=== PATIENT | female | born 1945 | race Caucasian/White ===

== ENCOUNTER 2016-11-05 14:00 | Emergency (ER) | payer MEDICARE, BC ==
[2016-11-05 14:37] VITALS: BP 146/68
[2016-11-05] MEDS ORDERED: Aspirin Low Dose CHEW TAB* 81 MG PO ONE (16:14)
--- NOTE | 2016-11-05 17:08 | UC ---
Magali Zuleta Erika, scribed for Radha Saavedra DO on 11/05/16 at 1615 . Shoulder Pain HPI - HPI Summary HPI Summary: Patient is a 71-year-old female presenting to [facility] with a CC of L shoulder pain which was present when she woke up yesterday morning. She describes pain as throbbing, sharp and constant, and rates it an 8/10 currently. She states pain radiates from the left jaw/neck to the left shoulder. Pain was aggravated by exertion, carrying groceries and driving, or other similar movements, as well as by palpation. She does note some decreased ROM d/t pain. Patient denies any other symptoms, including fever, chills, diaphoresis, headache, dizziness, lightheadedness, sore throat, ear ache, cough, SOB, chest pain, nausea, vomiting , abdominal pain, urinary symptoms, and rash. Hx CAD with one cardiac stent in 1995, which was placed after chest pain and a stress test. No recent stress test. Hx diabetes - reports that A1C was around 15, and is now 7-8 after starting trulicity, and her blood glucose is now around 130. She states she also takes novolog and levemir. Hx HTN. FHx colon and breast CA. Patient denies FHx CAD, HTN, DM. Patient is a former smoker, and denies current household exposure to tobacco. No known trauma. - History of Current Complaint Chief Complaint: UCUpperExtremity Stated Complaint: SHOULDER COMPLAINT Time Seen by Provider: 11/05/16 15:33 Hx Obtained From: Patient, Family/[employer] Officer Onset/Duration: Lasting Hours, Still Present Timing: Constant Severity Initially: Moderate Severity Currently: Severe Location Of Pain: Is Discrete @ - L shoulder to jaw Pain Intensity: 8 Pain Scale Used: 0-10 Numeric Character: Sharp, Throbbing Aggravating Factor(s): Movement, Nothing - exertion Alleviating Factor(s): Rest Associated Signs And Symptoms: Positive: Negative - Allergies/Home Medications Allergies/Adverse Reactions: Allergies Allergy/AdvReac Type Severity Reaction Status Date / Time BACTRIM Allergy Rash And Uncoded 11/05/16 14:37 Itching CLARITH Allergy Nausea And Uncoded 11/05/16 14:37 Vomiting Home Medications: Home Medications Dulaglutide (NF) [Trulicity (NF)] 0.5 ml SUBCUT SEE INSTRUCTIONS 11/05/16 [ History Confirmed 11/05/16] Ibuprofen [Advil] 800 mg PO Q8HR PRN 11/05/16 [History Confirmed 11/05/16] Insulin Detemir (NF) [Levemir (NF)] 80 units SUBCUT BID 11/05/16 [History Confirmed 11/05/16] Ropinirole Hydrochloride [Requip] 2 tab PO SEE INSTRUCTIONS 11/05/16 [History Confirmed 11/05/16] PMH/Surg Hx/FS Hx/Imm Hx Endocrine History Of: Reports: Diabetes, Dyslipidemia Cardiovascular History Of: Reports: Cardiac Disorders - Stents, Hypertension - ON MEDS - Surgical History Surgical History: Yes Surgery Procedure, Year, and Place: DEVIATED SEPTUM REPAIR 1991. LEFT OVARIAN CYST REMOVAL 1983. Cardiac stent - Family History Known Family History: Positive: Other - colon CA and breast CA Negative: Cardiac Disease, Hypertension, Diabetes - Social History Lives: With Family Alcohol Use: Rare Substance Use Type: None Smoking Status (MU): Former Smoker Type: Cigarettes Amount Used/How Often: 1.5 PACK/DAY Length of Time of Smoking/Using Tobacco: 15 years Have You Smoked in the Last Year: No When Did the Patient Quit Smoking/Using Tobacco: 1995 Review of Systems Constitutional: Negative Skin: Negative Eyes: Negative ENT: Negative Respiratory: Negative Cardiovascular: Negative Gastrointestinal: Negative Genitourinary: Negative Motor: Negative Neurovascular: Negative Musculoskeletal: Decreased ROM - L shoulder, Other: - L shoulder pain radiating from jaw through neck Neurological: Negative Psychological: Negative All Other Systems Reviewed And Are Negative: Yes Physical Exam Triage Information Reviewed: Yes Appearance: Well-Appearing, Well-Nourished, Pain Distress - Mild to moderate Vital Signs: Initial Vital Signs Temp 98.2 F 11/05/16 14:32 Pulse 75 11/05/16 14:32 Resp 16 11/05/16 14:32 BP 146/68 11/05/16 14:32 Pulse Ox 97 11/05/16 14:32 Vital Signs Reviewed: Yes Eyes: Positive: Conjunctiva Clear. Negative: Discharge ENT: Positive: Hearing grossly normal. Negative: Muffled/hoarse voice Neck: Positive: Supple, Nontender Respiratory: Positive: Lungs clear, Normal breath sounds, No respiratory distress, No accessory muscle use Cardiovascular: Positive: RRR, No Murmur Abdomen Description: Positive: Nontender, Soft. Negative: Distended, Guarding Bowel Sounds: Positive: Present Musculoskeletal Exam: Other - Tenderness at the left spine of scapula. Tenderness along the distal clavicle over acromion. Pain up the left side of the jaw and neck, but not worsened with palpation. ROM limited in flexion and abduction. Internal and external rotation okay. Passive ROM did not elicit a barrier but was discontinued due to pain. Mild paraspinal tenderness Neurological: Positive: Alert, Muscle Tone Normal Psychological Exam: Normal Psychological: Positive: Age Appropriate Behavior Skin Exam: Other - Warm, dry, normal color Diagnostics - EKG Cardiac Rate: NL - at 77 bpm Cardiac Rhythm: Sinus: Normal - No ST changes Shoulder Course/Dx - Differential Dx/Diagnosis Differential Diagnosis/HQI/PQRI: Arthritis, Bursitis, Sprain, Other - adhesive capsulitis, cervical strain, pinched nerve Provider Diagnoses: 1. Atypical chest pain r/o ACS. 2. Left shoulder pain and neck pain - Physician Notification/Consults Discussed Patient Care With: Dr. Dang ([facility] [place] [facility]) at 16:08 - accepts for transfer Discharge - Discharge Plan Condition: Stable Disposition: TRANS HIGHER LVL OF CARE FAC Referrals: Michael Campbell MD [Primary Care Provider] - The documentation as recorded by the Magali rendon Erika accurately reflects the service I personally performed and the decisions made by , Radha Saavedra DO.
== END 2016-11-05 16:44 | disposition short-term general hospital (02) ==
LOC: UCEAST 14:00
DX: R07.89 Other chest pain (principal); E11.9 Type 2 diabetes mellitus without complications; E78.5 Hyperlipidemia, unspecified; I10 Essential (primary) hypertension; M25.512 Pain in left shoulder; M54.2 Cervicalgia; Z87.891 Personal history of nicotine dependence; Z88.3 Allergy status to other anti-infective agents; Z79.4 Long term (current) use of insulin
CPT/HCPCS: 93005; 99214; A9270-GY; G0463

== ENCOUNTER 2016-11-05 17:02 | Emergency (ER) | payer MEDICARE, BC ==
[2016-11-05] MEDS ORDERED: traMADol TAB* 50 MG PO ONE (18:13)
--- NOTE | 2016-11-05 19:28 | RAD ---
Indication: 2 days LEFT shoulder pain. Tightness radiating to the LEFT side of the neck. No known injury. Comparison: None. Technique: Internal and external rotation AP and scapular Y views LEFT shoulder Report: Normal acromioclavicular and glenohumeral joint alignment. Negative for fracture. Mild osteophytosis at both the acromioclavicular and glenohumeral joints as well as mild inferior acromial bone spur and cystic change at the greater tuberosity of the humerus. Negative for stigmata of calcific tendinopathy or abnormal soft tissue contour. IMPRESSION: Mild osteoarthritis. Reactive change at the greater tuberosity of the humerus favors presence of chronic rotator cuff pathology.
[2016-11-05] MEDS ORDERED: oxyCODONE/Acetamin 5/325 MG* TAB PO ONE (19:50)
[2016-11-05] MEDS ORDERED: HYDROcodone/ACETAMIN 5-325 MG* 1 TAB PO SCH (20:00)
[2016-11-05] MEDS ORDERED: HYDROcodone/ACETAMIN 5-325 MG* 1 TAB PO ONE (20:14)
[2016-11-05 21:17] VITALS: BP 136/78
--- NOTE | 2016-11-06 17:48 | ED ---
Gogo Zuleta Claudia, scribed for Darío Dang MD on 11/05/16 at 1824 . Upper Extremity Pain - HPI Summary HPI Summary: 71 year old female presents to the ED with left shoulder pain. Pt notes diffuse pain from the anterior aspect to the posterior aspect. Pt notes gradual onset of pain yesterday worsening today. Pt denies any trauma but is unsure if she slept differently on it. Pt notes this am she woke up and thought it was better but the pain was aggravated with movement worsening throughout the day. Pt notes the ibuprofen she has taken has not alleviated her pain. Pt only notes movement as an aggravating factor. She denies any associated Sx.Pt notes the shoulder pain as a constant ache. - History of Current Complaint Chief Complaint: EDShoulderClavicleInj Stated Complaint: SHOULDER PAIN Time Seen by Provider: 11/05/16 17:57 Hx Obtained From: Patient Onset/Duration: Started Days Ago, Atraumatic, Still Present Timing: Constant Pain Location: Shoulder - left Character: Aching Aggravating Factor(s): Movement - Allergies/Home Medications Allergies/Adverse Reactions: Allergies Allergy/AdvReac Type Severity Reaction Status Date / Time BACTRIM Allergy Rash And Uncoded 11/05/16 14:37 Itching CLARITH Allergy Nausea And Uncoded 11/05/16 14:37 Vomiting PMH/Surg Hx/FS Hx/Imm Hx Previously Healthy: Yes Endocrine/Hematology History: Reports: Hx Diabetes Cardiovascular History: Reports: Hx Hypertension - ON MEDS GI History: Reports: Hx Gastroesophageal Reflux Disease Sensory History: Reports: Hx Contacts or Glasses - GLASSES Denies: Hx Hearing Aid Opthamlomology History: Reports: Hx Contacts or Glasses - GLASSES - Surgical History Surgery Procedure, Year, and Place: DEVIATED SEPTUM REPAIR 1991. LEFT OVARIAN CYST REMOVAL 1983. Cardiac stent Hx Anesthesia Reactions: No Infectious Disease History: No Infectious Disease History: Denies: Hx Clostridium Difficile, Hx Hepatitis, Hx Human Immunodeficiency Virus (HIV), Hx of Known/Suspected MRSA, Hx Shingles, Hx Tuberculosis, Hx Known/ Suspected VRE, Hx Known/Suspected VRSA, History Other Infectious Disease, Traveled Outside the [place] in Last 30 Days - Family History Family History: NO FHX OF MALIGNANT HYPERTHERMIA - Social History Occupation: Retired Lives: Alone Alcohol Use: Rare Substance Use Type: Reports: None Smoking Status (MU): Former Smoker Type: Cigarettes Amount Used/How Often: 1.5 PACK/DAY Length of Time of Smoking/Using Tobacco: 15 years Have You Smoked in the Last Year: No Review of Systems Constitutional: Negative Negative: Fever, Chills Eyes: Negative ENT: Negative Cardiovascular: Negative Respiratory: Negative Gastrointestinal: Negative Genitourinary: Negative Positive: Other - right shoulder pain Skin: Negative Neurological: Negative Psychological: Normal All Other Systems Reviewed And Are Negative: Yes Physical Exam Triage Information Reviewed: Yes Vital Signs On Initial Exam: Initial Vitals Temp Pulse Resp BP Pulse Ox 97.7 F 74 16 144/60 97 11/05/16 17:11 11/05/16 17:11 11/05/16 17:11 11/05/16 17:11 11/05/16 17:11 Vital Signs Reviewed: Yes Appearance: Positive: Well-Appearing, No Pain Distress Skin: Positive: Warm, Skin Color Reflects Adequate Perfusion, Dry Head/Face: Positive: Normal Head/Face Inspection Eyes: Positive: Normal ENT: Positive: Normal ENT inspection Neck: Positive: Supple, Nontender Respiratory/Lung Sounds: Positive: Clear to Auscultation, Breath Sounds Present Cardiovascular: Positive: RRR Abdomen Description: Positive: Nontender, Soft Musculoskeletal: Positive: Normal, Other - pain over the anterior aspect and posterior aspect of the right shoulder Neurological: Positive: Normal Psychiatric: Positive: Affect/Mood Appropriate Diagnostics - Vital Signs Vital Signs Temp Pulse Resp BP Pulse Ox 11/05/16 17:14 78 22 144/60 97 11/05/16 17:13 78 97 11/05/16 17:11 97.7 F 74 16 144/60 97 - Laboratory Lab Statement: Any lab studies that have been ordered have been reviewed, and results considered in the medical decision making process. - Radiology Shoulder Xray Xray Interpretation: No Acute Changes - Mild osteoarthritis. Reactive change at the greater tuberosity of the humerus favors presence of chronic rotator cuff pathology. Radiology Interpretation Completed By: Radiologist Course/Dx - Course Course Of Treatment: Keysha was found on X-ray to have inflammation in her rotator cuff and this is likely the source of her pain. She was placed in a shoulder immobilizer and cautioned that she needs to F/U within a week to prevent her shoulder from freezing up. - Diagnoses Provider Diagnoses: Rotator cuff arthropathy Discharge - Discharge Plan Condition: Stable Disposition: HOME Prescriptions: HYDROcodone/ACETAMIN 5-325 MG* [[place] 5-325 TAB*] 1 tab PO Q6H PRN #20 tab MDD 4 PRN Reason: Pain Patient Education Materials: Hydrocodone/Acetaminophen (By mouth), Rotator Cuff Tendinitis (ED) Referrals: Michael Campbell MD [Primary Care Provider] - 4 Days Additional Instructions: PLEASE DO NOT USE THE SHOULDER IMMOBILIZER FOR MORE THAN A WEEK WITHOUT SEEING YOUR PRIMARY CARE PROVIDER. The documentation as recorded by the Gogo rendon Claudia accurately reflects the service I personally performed and the decisions made by me, Darío Dang MD.
== END 2016-11-05 21:15 | disposition home or self-care (01) ==
LOC: ED 17:02
DX: M75.82 Other shoulder lesions, left shoulder (principal); M25.512 Pain in left shoulder; Z87.891 Personal history of nicotine dependence; R07.89 Other chest pain; E11.9 Type 2 diabetes mellitus without complications; E78.5 Hyperlipidemia, unspecified; I10 Essential (primary) hypertension; M54.2 Cervicalgia; Z88.3 Allergy status to other anti-infective agents; Z79.4 Long term (current) use of insulin
CPT/HCPCS: 93005; 99283; A9270-GY

== ENCOUNTER 2018-11-14 11:56 | Emergency (ER) | payer MEDICARE, OTHER ==
--- NOTE | 2018-11-14 12:30 | ED ---
Bite Injury/Animal - HPI Summary HPI Summary: Pt is a 73 y/o female who presents to the ED c/o tick bite. She noticed a tick in her left groin area yesterday morning. Pt is unsure how long the tick has been there. She has not removed the tick from the area. Pt notes that she recently removed 5 ticks from her dog. Pt states she has her normal level of myalgia, but denies any fever, CP, SOB, LE edema, LE pain, abdominal pain, or N/ V. - History of Current Complaint Chief Complaint: EDGeneral Stated Complaint: POSS TICK IN LEG PER PT Time Seen by Provider: 11/14/18 12:27 Hx Obtained From: Patient Onset of Injury: Happened days ago - unsure - noticed yesterday, Still Present Type of Bite: Wild Animal - tick Severity Currently: None Pain Intensity: 0 Pain Scale Used: 0-10 Numeric Aggravating Factor(s): Nothing Alleviating Factor(s): Nothing Associated Signs And Symptoms: Negative: Fever - Allergies/Home Medications Allergies/Adverse Reactions: Allergies Allergy/AdvReac Type Severity Reaction Status Date / Time clarithromycin Allergy Nausea And Verified 11/14/18 12:04 Vomiting sulfamethoxazole Allergy Rash And Verified 11/14/18 12:04 [From Bactrim] Itching trimethoprim [From Bactrim] Allergy Rash And Verified 11/14/18 12:04 Itching PMH/Surg Hx/FS Hx/Imm Hx Endocrine/Hematology History: Reports: Hx Diabetes Cardiovascular History: Reports: Hx Hypertension - ON MEDS GI History: Reports: Hx Gastroesophageal Reflux Disease Sensory History: Reports: Hx Contacts or Glasses - GLASSES Denies: Hx Hearing Aid Opthamlomology History: Reports: Hx Contacts or Glasses - GLASSES - Surgical History Surgery Procedure, Year, and Place: DEVIATED SEPTUM REPAIR 1991. LEFT OVARIAN CYST REMOVAL 1983. Cardiac stent Hx Anesthesia Reactions: No Infectious Disease History: No Infectious Disease History: Denies: Hx Clostridium Difficile, Hx Hepatitis, Hx Human Immunodeficiency Virus (HIV), Hx of Known/Suspected MRSA, Hx Shingles, Hx Tuberculosis, Hx Known/ Suspected VRE, Hx Known/Suspected VRSA, History Other Infectious Disease, Traveled Outside the [place] in Last 30 Days - Family History Known Family History: Positive: Other - colon CA and breast CA Negative: Cardiac Disease, Hypertension, Diabetes Family History: NO FHX OF MALIGNANT HYPERTHERMIA - Social History Alcohol Use: Rare Hx Substance Use: No Substance Use Type: Reports: None Hx Tobacco Use: Yes Smoking Status (MU): Former Smoker Type: Cigarettes Amount Used/How Often: 1.5 PACK/DAY Length of Time of Smoking/Using Tobacco: 15 years Have You Smoked in the Last Year: No Review of Systems Negative: Fever Negative: Chest Pain Negative: Shortness Of Breath Negative: Abdominal Pain, Vomiting, Nausea Positive: Myalgia - normal. Negative: Edema - LE, Other - LE pain Positive: Other - tick left groin All Other Systems Reviewed And Are Negative: Yes Physical Exam - Summary Physical Exam Summary: Appearance: well appearing, no pain distress Skin: warm, dry, reflects adequate perfusion, embedded tick on left groin with erythema at site, no ECM Head/face: normal Eyes: EOMI, YANET ENT: mucous membranes moist Neck: supple, non-tender Respiratory: CTA, breath sounds present Cardiovascular: RRR, pulses symmetrical Abdomen: non-tender, soft Bowel Sounds: present Musculoskeletal: normal, strength/ROM intact Neuro: normal, sensory motor intact, A&Ox3 Triage Information Reviewed: Yes Vital Signs On Initial Exam: Initial Vitals Temp Pulse Resp BP Pulse Ox 96.2 F 66 16 157/67 99 11/14/18 11:59 11/14/18 11:59 11/14/18 11:59 11/14/18 11:59 11/14/18 11:59 Vital Signs Reviewed: Yes Procedures - Procedure Summary Procedure Summary: Foreign Body removal: Attempted to use with tick remover but this was not successful, removed entire tick with forceps, placed Band-aid afterwards. Diagnostics - Vital Signs Vital Signs Temp Pulse Resp BP Pulse Ox 11/14/18 11:59 96.2 F 66 16 157/67 99 - Laboratory Lab Statement: Any lab studies that have been ordered have been reviewed, and results considered in the medical decision making process. Bite Injury Course/Dx - Diagnoses Provider Diagnosis: Tick bite Discharge - Sign-Out/Discharge Documenting (check all that apply): Patient Departure - Discharge Patient Received Moderate/Deep Sedation with Procedure: No - Discharge Plan Condition: Good Disposition: HOME Patient Education Materials: Tick Bite (ED) Referrals: Michael Campbell MD [Primary Care Provider] - Additional Instructions: Call your doctor today to schedule follow-up. We will call with a positive Lyme. Return with rash, joint aches, fevers, worse, new symptoms or other concerns. - Attestation Statements Document Initiated by Scribe: Yes Documenting Scribe: Camelia Sinha Provider For Whom Scribe is Documenting (Include Credential): Josh Watson MD Scribe Attestation: Camelia Zuleta, scribed for Josh Watson MD on 11/14/18 at 1304. Status of Scribe Document: Ready
[2018-11-14] MEDS ORDERED: DOXYcycline CAP(*) 100 MG PO ONE (12:52)
[2018-11-14 13:06] VITALS: BP 163/86
[2018-11-16 16:51] LABS: B garinii/B afzelii PCR Negative (Negative); B mayonii PCR Negative (Negative)
== END 2018-11-14 13:05 | disposition home or self-care (01) ==
LOC: ED 11:56
DX: S30.861A Insect bite (nonvenomous) of abdominal wall, initial encounter (principal); W57.XXXA Bitten or stung by nonvenomous insect and other nonvenomous arthropods, initial encounter; I10 Essential (primary) hypertension; E11.9 Type 2 diabetes mellitus without complications; K21.9 Gastro-esophageal reflux disease without esophagitis; Z88.3 Allergy status to other anti-infective agents; Z88.2 Allergy status to sulfonamides; Z79.899 Other long term (current) drug therapy; Z87.891 Personal history of nicotine dependence
CPT/HCPCS: 87476; 87798; 99282; A9270-GY

== ENCOUNTER 2021-05-22 18:00 | Inpatient (IN) ==
[2021-05-22 23:01] LABS: ABS Basophils 0.1 10^3/ul (0-0.2); ABS Eosinophils 0.1 10^3/ul (0-0.6); ABS Monocytes 0.7 10^3/ul (0-0.8); ABS Neutrophils 4.1 10^3/ul (1.5-7.7); Eosinophil % 1.2 %; Hematocrit 32 % (35-47); Hemoglobin 10.2 g/dL (12.0-16.0); Lymphocyte % 37.6 %; Mean Corpuscular HGB Conc 32 g/dL (31-36); Mean Corpuscular Hemoglobin 25 pg (27-31); Mean Corpuscular Volume 80 fL (80-97); Mean Platelet Volume 7.6 fL (7.4-10.4); Platelet Count 293 10^3/uL (150-450); Red Blood Count 4.03 10^6 /uL (3.70-4.87); Red Cell Distribution Width 19 % (10-15)
[2021-05-22 23:23] LABS: ALT 25 U/L (7-52); AST 18 U/L (13-39); Albumin 3.9 g/dL (3.2-5.2); Albumin/Globulin Ratio 1.4 (1-3); Alkaline Phosphatase 58 U/L (35-149); Anion Gap 6 mmol/L (2-11); Blood Urea Nitrogen 19 mg/dL (6-24); CO2 Carbon Dioxide 23 mmol/L (22-32); Calcium 9.3 mg/dL (8.6-10.3); Chloride 106 mmol/L (101-111); Globulin 2.7 g/dL (2-4); Glucose 343 mg/dL (70-100); Potassium 4.3 mmol/L (3.5-5.0); Sodium 135 mmol/L (135-145); Total Protein 6.6 g/dL (6.4-8.9)
[2021-05-23 02:22] LABS: Troponin I 0.19 ng/mL (<0.03)
[2021-05-23] MEDS ORDERED: Carbidopa/Levodop 25/100 MG TAB ONE (03:11)
[2021-05-23] MEDS: Carbidopa/Levodopa ER 25/100 TABLET.ER PO SCH ×2 (03:15→21:28)
[2021-05-23] MEDS ORDERED: Dextrose 50% Syringe 50 ml 25 GM/50 ML SYRINGE IV PUSH PRN (05:39)
[2021-05-23] MEDS ORDERED: Heparin DRIP 25,000 UNITS BAG 25,000 UNITS/500 ML BAG IV SCH (05:45)
[2021-05-23] MEDS ORDERED: Heparin 5000 UNITS/ML 1 mL VIAL IV SCH (06:00)
[2021-05-23 06:25] LABS: ABS Eosinophils 0.1 10^3/ul (0-0.6); ABS Monocytes 0.7 10^3/ul (0-0.8); ABS Neutrophils 5.1 10^3/ul (1.5-7.7); Eosinophil % 1.1 %; Hematocrit 30 % (35-47); Hemoglobin 9.9 g/dL (12.0-16.0); Lymphocyte % 33.5 %; Mean Corpuscular HGB Conc 33 g/dL (31-36); Mean Corpuscular Hemoglobin 26 pg (27-31); Mean Corpuscular Volume 80 fL (80-97); Mean Platelet Volume 7.5 fL (7.4-10.4); Platelet Count 267 10^3/uL (150-450); Red Cell Distribution Width 19 % (10-15); White Blood Count 8.9 10^3/uL (3.5-10.8)
[2021-05-23 06:39] LABS: Rapid COVID-19 Molecular Undetected (Undetected)
[2021-05-23 06:43] LABS: Activated Partial Thrombo Time 27.1 seconds (26.0-38.0); INR 1.1 (0.86-1.15)
[2021-05-23 06:46] LABS: Anion Gap 7 mmol/L (2-11); Blood Urea Nitrogen 17 mg/dL (6-24); CO2 Carbon Dioxide 24 mmol/L (22-32); Calcium 9.3 mg/dL (8.6-10.3); Chloride 105 mmol/L (101-111); Cholesterol 112 mg/dL; Glucose 216 mg/dL (70-100); HDL Cholesterol 39.8 mg/dL; LDL Cholesterol 42 mg/dL; Sodium 136 mmol/L (135-145); Triglycerides 149 mg/dL
[2021-05-23 06:54] LABS: Troponin I 0.18 ng/mL (<0.03)
[2021-05-23] MEDS ORDERED: Aspirin EC 81 mg TAB.EC (enteric coated) PO SCH (09:00)
[2021-05-23] MEDS ORDERED: NS 0.9% 1000 ml BAG 1,000 ML IV SCH (13:30)
[2021-05-23] MEDS ORDERED: fentaNYL 100 mcg/2 ml 50 MCG/ML VIAL ONE (14:28)
[2021-05-23] MEDS ORDERED: Midazolam 5 mg/5 ml VIAL 1 mg/ml 5 ml VIAL (5 mg) ONE (14:28)
[2021-05-23] MEDS ORDERED: nitroGLYCERIN DRIP 25,000 MCG/250 ML BTL ONE (14:29)
[2021-05-23] MEDS ORDERED: Iohexol 350 (CONTRAST) 200 ML MDV IV ONE (14:29)
[2021-05-23] MEDS ORDERED: Heparin 2 UNITS/ML 1000 mls 3,000 ML IV ONE (14:29)
[2021-05-23] MEDS ORDERED: Lidocaine 1% VIAL 10 MG/ML VIAL ONE (14:29)
[2021-05-23] MEDS ORDERED: niCARdipine 0.1MG/ML IVPREMIX 20 MG/200 ML BAG IV ONE (14:29)
[2021-05-23] MEDS ORDERED: Heparin 1,000 UNIT/ML 10 ml (10,000 UNITS) CATHLAB/DIALYSIS ONE (14:59)
[2021-05-23] MEDS ORDERED: Ondansetron 4 mg VIAL 2 MG/ML 2 ml VIAL IV PRN (16:31)
[2021-05-23] MEDS: Carbidopa/Levodop 25/100 MG TAB PO SCH ×2 (18:56→20:56)
[2021-05-23] MEDS ORDERED: INSULIN GLARGINE (NF) 300 UNIT/ML INJ SUBCUT SCH (21:00)
[2021-05-23] MEDS ORDERED: Insulin GLARGINE 100 un/ml 10 ml VIAL SUBCUT SCH (21:00)
[2021-05-23] MEDS ORDERED: Carbidopa/Levodop CR 50/200 TAB.CR PO SCH (22:00)
[2021-05-24 04:27] LABS: ABS Eosinophils 0.1 10^3/ul (0-0.6); ABS Lymphocytes 2.3 10^3/ul (1.0-4.8); ABS Monocytes 0.7 10^3/ul (0-0.8); ABS Neutrophils 5.2 10^3/ul (1.5-7.7); Hematocrit 30 % (35-47); Hemoglobin 9.8 g/dL (12.0-16.0); Lymphocyte % 27.7 %; Mean Corpuscular HGB Conc 33 g/dL (31-36); Mean Corpuscular Hemoglobin 26 pg (27-31); Mean Corpuscular Volume 79 fL (80-97); Mean Platelet Volume 7.4 fL (7.4-10.4); Platelet Count 281 10^3/uL (150-450); Red Blood Count 3.79 10^6 /uL (3.70-4.87); Red Cell Distribution Width 19 % (10-15); White Blood Count 8.4 10^3/uL (3.5-10.8)
[2021-05-24 04:43] LABS: Calcium 9.1 mg/dL (8.6-10.3); Magnesium 1.5 mg/dL (1.9-2.7); Phosphorus 3.8 mg/dL (2.5-5.0); Potassium 3.7 mmol/L (3.5-5.0)
[2021-05-24 10:44] VITALS: BP 112/65
[2021-05-24] MEDS ORDERED: Magnesium Sulf 4 GM/100 ML IV 4,000 MG/100 ML BAG IVPB ONE (11:31)
[2021-05-24] MEDS ORDERED: Potassium Chlor 20 meq TAB.ER PO ONE (11:31)
== END 2021-05-24 15:00 | disposition home or self-care (01) | DRG 247 ==
LOC: ED 18:00 → ICU 05-23 16:32
PROVIDERS: ADMIT Hospitalist; ATTEND Hospitalist